=== PATIENT | female | born 1980 | race Caucasian/White ===

== ENCOUNTER → 2018-09-04 | Outpatient (CLI) | payer OTHER ==
[~2018-09-04] MED LIST: Bactrim 400-801 EACH PO; DOCU100 PO; ESCI20 PO; IBUP800 PO; Percocet 5-3251 EACH PO; Prenatal Compl1 EACH PO
[2018-09-09 07:12] LABS: COTININE None Detected (.); NICOTINE None Detected (.)
== END | disposition home or self-care (01) ==
LOC: LAB SHORT 18:22 → LAB 18:22
PROVIDERS: Obstetrics & Gynecology
DX: Z72.0 Tobacco use (principal)
CPT/HCPCS: G0480

== ENCOUNTER 2018-10-19 06:04 | Day surgery (SDC) | payer OTHER ==
[2018-10-17 13:46] LABS: Hematocrit 42.3 % (33.0-51.0); Hemoglobin 13.5 g/dL (11.5-16.0); Mean Corpuscular HGB Conc 31.9 g/dL (31.5-36.5); Mean Corpuscular Volume 88 fL (80-100); Mean Platelet Volume 9.1 fL (9.1-12.4); Platelet Count 335 K/mm3 (150-400); RDW Coefficient Variation 13.2 % (11.7-14.2); RDW Standard Deviation 42.5 fL (35.1-46.3); Red Blood Cell Count 4.82 M/mm3 (3.80-5.20); White Blood Cell Count 6.59 K/mm3 (4.00-11.30)
[~2018-10-19] VITALS: Ht 170.2 cm; Wt 69.4 kg
[~2018-10-19 06:04] MED LIST changes: -DOCU100 PO; -ESCI20 PO; -IBUP800 PO; -Percocet 5-3251 EACH PO; -Prenatal Compl1 EACH PO
[2018-10-19] MEDS ORDERED: ESCI20 PO (06:42)
--- NOTE | 2018-10-19 07:13 | NUR ---
Ambulatory in Day Surgery History, Chart, Medications and Allergies reviewed before start of procedure.Patient confirms NPO status and agrees with scheduled surgery. PT REPORTS ANXOIUS. TEARFUL AT TIMES, BUT CALMS WITH REASSURANCE. Patient reports completing Chlorhexadine shower X2 prior to admission to hospital.Surgical site prepped with 2% Chlorhexidine cloth wipe.
--- NOTE | 2018-10-19 09:05 | NUR ---
10/19/18 0905 Mary Estrada ALL COUNTS CORRECT.
--- NOTE | 2018-10-19 18:44 | NUR ---
PT HAS BEEN STABLE POST OP. UP TO AMBULATE HALLWAY WITH MINIMAL ASSIST. GRUBER DRAINING WELL, TO BE DC'D IN THE AM. CONT IV FLUIDS ORDERED. PT KOREY REG DIET WELL WITHOUT NAUSEA. PAIN CONTROLLED WITH SCHEDULED TORADOL AND PRN PERCOCET. SCANT EMA DRAINAGE. STERI STRIPS CDI. PLAN TO DC HOME TOMORROW.
[2018-10-20 04:40] LABS: BASOPHILS ABSOLUTE AUTO 0.02 K/mm3 (0.00-0.23); BASOPHILS PERCENT AUTO 0 % (0-2); EOSINOPHILS ABSOLUTE AUTO 0.04 K/mm3 (0.00-0.68); EOSINOPHILS PERCENT AUTO 0 % (0-6); Hematocrit 35.5 % (33.0-51.0); Hemoglobin 11.1 g/dL (11.5-16.0); IMMATURE GRAN ABSOLUTE AUTO 0.05 K/mm3 (0.00-0.10); IMMATURE GRAN PERCENT AUTO 0 % (0-1); LYMPHOCYTES ABSOLUTE AUTO 1.62 K/mm3 (0.84-5.20); LYMPHOCYTES PERCENT AUTO 12 % (21-46); MONOCYTES ABSOLUTE AUTO 1.19 K/mm3 (0.16-1.47); MONOCYTES PERCENT AUTO 9 % (4-13); Mean Corpuscular HGB 27.9 pg (26.0-34.0); Mean Corpuscular HGB Conc 31.3 g/dL (31.5-36.5); Mean Corpuscular Volume 89 fL (80-100); Mean Platelet Volume 9.2 fL (9.1-12.4); NEUTROPHILS ABSOLUTE AUTO 10.65 K/mm3 (1.96-9.15); NEUTROPHILS PERCENT AUTO 79 % (41-73); Platelet Count 283 K/mm3 (150-400); RDW Coefficient Variation 13.2 % (11.7-14.2); RDW Standard Deviation 43.8 fL (35.1-46.3); Red Blood Cell Count 3.98 M/mm3 (3.80-5.20); White Blood Cell Count 13.57 K/mm3 (4.00-11.30)
--- NOTE | 2018-10-20 05:28 | NUR ---
SUMMARY: PT IS POD1 LAVH. DID WELL OVER NIGHT. VSS, MEDICATED WITH 2 PERCOCET Q4 AND IV TORADOL. SURGICAL SITES WNL, SCANT BLEEDING VAGINALY. GRUBER DC'D AT ABOUT 0505, AWAITING VOID. PT TOLERATING REG DIET, DENIES N/V. NO ACUTE SAFETY CONCERNS AT THIS TIME.
[2018-10-20] MEDS ORDERED: IBUP800 PO (10:50)
[2018-10-20] MEDS ORDERED: Percocet 5-3251 EACH PO (10:51)
[2018-10-20] MEDS ORDERED: DOCU100 PO (10:52)
[2018-10-20] MEDS ORDERED: Prenatal Compl1 EACH PO (10:52)
--- NOTE | 2018-10-20 15:24 | NUR ---
DISCHARGE PT AMBULATING, TOLERATING DIET, PAIN CONTROLLED, VOIDING. PT D/C VIA W/C W/ PADS, COTTON/DISPOSABLE PANTIES, AND EMA BOTTLE. SCRIPTS GIVEN.
== END 2018-10-20 15:27 | disposition home or self-care (01) ==
LOC: ORSCMMR 06:04 → ORD 07:30 → ORSCMMR 07:30 → SURS 10:25 → ORSCMMR 10-20 15:27
PROVIDERS: Obstetrics & Gynecology
PROC: 0UT9FZZ Resection of Uterus, Via Natural or Artificial Opening With Percutaneous Endoscopic Assistance (ICD-10-PCS; 2018-10-19)
PROC: 0U5F4ZZ Destruction of Cul-de-sac, Percutaneous Endoscopic Approach (ICD-10-PCS; 2018-10-19)
PROC: 0UT7FZZ Resection of Bilateral Fallopian Tubes, Via Natural or Artificial Opening With Percutaneous Endoscopic Assistance (ICD-10-PCS; principal; 2018-10-19 07:30)
DX: N80.3 Endometriosis of pelvic peritoneum (principal); N92.0 Excessive and frequent menstruation with regular cycle; D25.9 Leiomyoma of uterus, unspecified; N83.8 Other noninflammatory disorders of ovary, fallopian tube and broad ligament; F32.9 Major depressive disorder, single episode, unspecified; F41.9 Anxiety disorder, unspecified; Z87.891 Personal history of nicotine dependence; Z79.899 Other long term (current) drug therapy; Z79.3 Long term (current) use of hormonal contraceptives
CPT/HCPCS: 36415; 81025; 85025; 85027; 86850; 86900; 86901; 88307; J0690; J1100; J1885; J2250; J2405; J2550; J2765; J3010; J7120; Q0163

== ENCOUNTER → 2019-02-22 | Outpatient (CLI) | payer OTHER ==
[~2019-02-22] MED LIST changes: +DOCU100 PO; +ESCI20 PO; +IBUP800 PO; +Percocet 5-3251 EACH PO; +Prenatal Compl1 EACH PO
== END | disposition home or self-care (01) ==
LOC: LAB SHORT 14:29 → LAB EV 14:29
DX: J02.9 Acute pharyngitis, unspecified (principal)
CPT/HCPCS: 87081